=== PATIENT | female | born 1995 | race Caucasian/White ===

== ENCOUNTER 2018-01-09 20:04 | Emergency (ER) | payer OTHER ==
[~2018-01-09] VITALS: Ht 160 cm; Wt 97.1 kg
[~2018-01-09 20:04] MED LIST: ALBU90OI INH; ATOM60 PO; Augmentin 500-1 EACH PO; BENZ100A PO; BIRTH CONTROL; CLON.5 PO; DIPH50 PO; FLUO10 PO; Keflex500 MG PO; ONDA4ODT MM; ONDA8; PRED20 PO; PROBIOTIC; PROCODE120 PO; PROM25 PO; PROM25S; Prednisone20 MG PO; TENEX; TRET.1TC TOP; VITAMINS; Zithromax250 MG PO
== END 2018-01-09 21:38 | disposition home or self-care (01) ==
LOC: ER 20:04
DX: S09.90XA Unspecified injury of head, initial encounter (principal); W22.8XXA Striking against or struck by other objects, initial encounter; Y99.0 Civilian activity done for income or pay; Z88.1 Allergy status to other antibiotic agents; Z88.8 Allergy status to other drugs, medicaments and biological substances
CPT/HCPCS: 99282

== ENCOUNTER → 2019-10-14 | Outpatient (CLI) | payer BC ==
[~2019-10-14] MED LIST changes: +HYDHCL25
== END | disposition home or self-care (01) ==
LOC: LAB SHORT 11:50 → LAB 11:50
PROVIDERS: Obstetrics & Gynecology
DX: Z01.419 Encounter for gynecological examination (general) (routine) without abnormal findings (principal)
CPT/HCPCS: G0123